=== PATIENT | male | born 1960 | race Caucasian/White ===

== ENCOUNTER 2017-03-10 15:31 | Emergency (ER) | payer SELFPAY ==
[2017-03-10] MEDS ORDERED: LISINOPRIL 5 MG TABLET PO STA (16:05)
[2017-03-10] MEDS ORDERED: ACETAMINOPHEN 325 MG TABLET PO STA (16:05)
[2017-03-10] MEDS ORDERED: ACETAMINOPHEN 325 MG TABLET PO ONE (16:09)
[2017-03-10] MEDS ORDERED: LISINOPRIL 5 MG TABLET ONE (16:09)
== END 2017-03-10 16:24 | disposition home or self-care (01) ==
DX: I10 Essential (primary) hypertension (principal); R51 Headache; Z76.0 Encounter for issue of repeat prescription; F17.200 Nicotine dependence, unspecified, uncomplicated
CPT/HCPCS: 99283; A9270

== ENCOUNTER 2020-11-12 10:59 | Outpatient (CLI) | payer OTHER ==
--- NOTE | 2020-11-12 12:43 | XRAY Report ---
PROCEDURE: Knee 3 View BILAT INDICATIONS: CHRONIC KNEE PAIN BILATERAL TECHNIQUE: 3 views of the both knee(s) were acquired. COMPARISON: None. FINDINGS: Bones: Mild symmetric joint space narrowing of the medial femoral tibial compartments. There is tric ompartmental osteoarthrosis bilaterally. No fractures or dislocations. No suspicious bony lesions. Soft tissues: Bilateral suprapatellar joint effusions. No suspicious soft tissue calcifications. 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 Bilateral joint effusion s. Reviewed by: Rajinder Gilman MD on 11/12/2020 11:42 AM [facility] Approved by: Rajinder Gilman MD on 11/12/2020 11:42 AM [facility] Station ID: [id number]
== END 2020-11-12 11:00 | disposition home or self-care (01) ==
LOC: DI 10:59
PROVIDERS: ATTEND Family Medicine
DX: M17.0 Bilateral primary osteoarthritis of knee (principal)